=== PATIENT | female | born 1970 | race Caucasian/White ===

== ENCOUNTER 2023-10-27 09:07 | Observation (INO) ==
[~2023-10-27 09:07] MED LIST: Acetaminophen IV 1 GM/100ML 1,000 MG/100 ML BAG IV ONE; Buffered Lidocaine 1% SYRIN 1 ml INTRADERM ONE; Dexamethasone IV 4 MG/ML VIAL 1 ml VIAL ONE; Lactated Ringers 1000 ml BAG 1,000 ML IV SCH; Lidocaine 2% PF 5 ML VIAL ONE; Midazolam 2 mg/2 ml VIAL 1 mg/ml 2 ml VIAL (2 mg) ONE; Ondansetron 4 mg VIAL 2 MG/ML 2 ml VIAL ONE; Phenylephrine IV 10 MG/ML 1 ml VIAL ONE; Propofol 10 MG/ML 20 ML BTL ONE; Rocuronium 50 mg VIAL 10 mg/ml 5 ml VIAL (50 mg) ONE; Sterile Water for Inj 10 ML ONE; fentaNYL 100 mcg/2 ml 50 MCG/ML VIAL ONE
[2023-10-27] MEDS ORDERED: Chlorhexidine MOUTHWASH 0.12% 15 ML UDC ONE (09:56)
[2023-10-27] MEDS ORDERED: ceFAZolin 2 GM in NS PREMIX 2 GM/100 ML BAG IVPB ONE (09:57)
[2023-10-27 10:48] LABS: Rapid COVID-19 Molecular Undetected (Undetected)
[2023-10-27] MEDS ORDERED: Gelfoam Sponge SIZE 100 SPONGE ONE (11:09)
[2023-10-27] MEDS ORDERED: Thrombin 5,000 UNITS(BOVINE) for Ultrasound Guided Pseudoaneursym ONE (11:09)
[2023-10-27] MEDS ORDERED: ceFAZolin VIAL VIAL ONE (11:09)
[2023-10-27] MEDS ORDERED: Albuterol HFA INHALER 8 gm MDI INH ONE (11:22)
[2023-10-27] MEDS ORDERED: Lidocaine 1% w EPI 1:200,000 SDV 30 ML VIAL ONE (12:04)
[2023-10-27] MEDS ORDERED: Phenylephrine 40 mcg/mL 10mL (400mcg) SYRINGE ONE (12:23)
[2023-10-27] MEDS ORDERED: Phenylephrine 1% NASAL 15 ML BOT ONE (12:23)
[2023-10-27] MEDS ORDERED: Senna TAB 8.6 mg TAB PO PRN (13:30)
[2023-10-27] MEDS ORDERED: Morphine 2 MG/ML SYRINGE IV PRN (13:30)
[2023-10-27] MEDS ORDERED: Phenol 1.4% Throat Spray BTL MT PRN (13:30)
[2023-10-27] MEDS ORDERED: Ondansetron 4 mg VIAL 2 MG/ML 2 ml VIAL IV PRN (13:30)
[2023-10-27] MEDS ORDERED: Benzocaine/Menthol LOZ MT PRN (13:30)
[2023-10-27] MEDS ORDERED: Dextran 70/Hypromellose Tears Eye Drops 15 ml BTL (for Artificials Tears) BOTH EYES PRN (13:30)
[2023-10-27] MEDS ORDERED: Calcium Carb (TUMS) 500 mg CHEW TAB PO PRN (13:30)
[2023-10-27] MEDS ORDERED: fentaNYL 100 mcg/2 ml 50 MCG/ML VIAL ONE (13:48)
[2023-10-27] MEDS ORDERED: Naloxone 0.4 mg VIAL 0.4 mg/ml 1 ml VIAL IV PRN (13:48)
[2023-10-27] MEDS: fentaNYL 100 mcg/2 ml 50 MCG/ML VIAL IV PRN ×2 (13:50→13:59)
[2023-10-27] MEDS ORDERED: Lactated Ringers 1000 ml BAG 1,000 ML IV SCH (14:00)
[2023-10-27] MEDS: Nicotine PATCH 21 MG/24 HR PATCH TRANSDERM SCH (16:11)
[2023-10-27] MEDS: Albuterol HFA INHALER 8 gm MDI INH SCH (20:53)
[2023-10-28] MEDS: Albuterol HFA INHALER 8 gm MDI INH SCH ×2 (07:15→11:55)
[2023-10-28] MEDS: Nicotine PATCH 21 MG/24 HR PATCH TRANSDERM SCH (09:36)
[2023-10-28 11:10] VITALS: BP 105/66
== END 2023-10-28 11:45 | disposition home or self-care (01) ==
LOC: OR 09:07 → SSU 09:07
PROVIDERS: ADMIT Neurological Surgery; ATTEND Neurological Surgery